=== PATIENT | male | born 1945 | race Two or more races ===

== ENCOUNTER 2025-03-23 08:20 | Emergency (ER) | payer OTHER ==
[~2025-03-23] VITALS: Ht 167.6 cm; Wt 81.6 kg
[~2025-03-23 08:20] MED LIST: NABUMETONE750 MG PO
[2025-03-23 09:07] VITALS: BP 127/76; O2SAT 96
[2025-03-23] MEDS ORDERED: 0.9 % SODIUM CHLORIDE 1,000 ML IV STA (11:08)
[2025-03-23 11:23] LABS: BASO % 0.4 % (0.1-1.2); EOS # 0.09 (0.04-0.54); EOS % 2.0 % (0.7-7.0); LYMPH # 1.98 (1.18-3.74); LYMPH % 43.9 % (19.3-53.1); MEAN PLATELET VOLUME 10.90 fl (9.4-12.4); MONO # 0.67 (0.24-0.82); NEUT # 1.71 (1.56-6.13); NEUT % 37.9 % (34.0-71.1); RED CELL DISTRIBUTION WIDTH 13.5 % (11.6-14.4)
[2025-03-23 11:25] LABS: MONO % 14.9 % (4.7-12.5)
[2025-03-23 12:12] LABS: ALT/SGPT 88.0 U/L (12-78); AST/SGOT 106.0 U/L (15-37); BILIRUBIN TOTAL 0.63 mg/dL (0.3-1.2); BILIRUBIN,CONJUGATED 0.2 mg/dL (0.0-0.2); BUN CREA RATIO 14.0 (7.0-25.0); CREATININE SERUM 0.72 mg/dL (0.70-1.30); GFR 105.04; GLUCOSE FASTING 109.0 mg/dL (65-100); OSMOLALITY SERUM 281.0 MOSM/KG (275-295)
[2025-03-23 12:30] LABS: COVID-19 AG NEGATIVE (NEGATIVE)
== END 2025-03-23 14:53 | disposition home or self-care (01) ==
LOC: ER 08:21
PROVIDERS: General Practice
DX: B34.9 Viral infection, unspecified (principal); Z20.822 Contact with and (suspected) exposure to COVID-19